=== PATIENT | female | born 1955 | race Caucasian/White ===

== ENCOUNTER 2017-10-15 09:19 | Emergency (ER) | payer MEDICARE, OTHER ==
[2017-10-15 09:23] VITALS: BP 150/73; PULSE 83; TEMP 98.6; BMI 30.2
--- NOTE | 2017-10-15 09:39 | PDOC ---
History of Present Illness - General Chief Complaint: Respiratory Stated Complaint: FLU LIKE SYMPTOMS Time Seen by Provider: 10/15/17 09:28 History Source: Patient Exam Limitations: No Limitations - History of Present Illness Initial Comments: 10/15/17 10:11 Patient here with multiple complaints including cough, body aches, headache, mild anorexia and dysuria. States upper respiratory illness started approximately one week ago has been using Tylenol for body aches and fever. Has not seen her private physician. Timing/Duration: reports: changing over time, getting worse Severity: reports: mild, moderate Modifying Factors: improves with: coughing Associated Symptoms: reports: cough, fever/chills, headache, nasal congestion, nasal drainage, sore throat. denies: wheezing Past History - Travel Traveled outside of the country in the last 30 days: No Close contact w/someone who was outside of country & ill: No - Past Medical History Allergies/Adverse Reactions: Allergies Allergy/AdvReac Type Severity Reaction Status Date / Time No Known Allergies Allergy Verified 10/15/17 09:24 Home Medications: Ambulatory Orders Albuterol Sulfate Inhaler - [Ventolin HFA Inhaler -] 1 - 2 inh PO Q4H #1 inhaler 10/15/17 Azithromycin [Zithromax -] 250 mg PO UTDICT #6 tab 10/15/17 COPD: No Diabetes: Yes HTN: Yes - Suicide/Smoking/Psychosocial Hx Smoking History: Never smoked Review of Systems - Review of Systems Able to Perform ROS?: Yes Is the patient limited Monegasque proficient: Yes Constitutional: Yes: Symptoms Reported, See HPI, Chills, Loss of Appetite, Malaise HEENTM: Yes: Symptoms Reported, See HPI, Nose Congestion, Throat Pain Respiratory: Yes: Symptoms reported, See HPI, Cough ABD/GI: Yes: Symptoms Reported, See HPI, Nausea Neurological: Yes: Symptoms reported, See HPI, Headache All Other Systems: Reviewed and Negative *Physical Exam - Vital Signs Last Vital Signs Temp Pulse Resp BP Pulse Ox 98.6 F 83 18 150/73 99 10/15/17 09:20 10/15/17 09:20 10/15/17 09:20 10/15/17 09:20 10/15/17 09:20 - Physical Exam General Appearance: Yes: Nourished, Appropriately Dressed, Apparent Distress, Mild Distress, Moderate Distress HEENT: positive: PRANAV, Normal ENT Inspection, TMs Normal, Rhinorrhea. negative : Tonsillar Exudate Neck: positive: Supple, Lymphadenopathy (R), Lymphadenopathy (L). negative: Tender Respiratory/Chest: positive: Lungs Clear, Decreased Breath Sounds, Crackles, Rhonchi, Wheezing. negative: Normal Breath Sounds Gastrointestinal/Abdominal: positive: Normal Bowel Sounds, Tender, Soft Extremity: positive: Normal Capillary Refill Integumentary: positive: Dry, Warm, Pale Neurologic: positive: puppy trainer II-XII NML intact, Fully Oriented, Alert, Normal Mood/ Affect, Normal Response, Motor Strength 5/5 Progress Note - Progress Note Progress Note: Much improved after DuoNeb. Urinalysis negative for any pathology. We will treat with Zithromax to cover bronchitis continue albuterol nebulizers *DC/Admit/Observation/Transfer Diagnosis at time of Disposition: Bronchitis - Discharge Dispostion Disposition: HOME Condition at time of disposition: Stable Admit: No - Prescriptions Prescriptions: Albuterol Sulfate Inhaler - [Ventolin HFA Inhaler -] 1 - 2 inh PO Q4H #1 inhaler Azithromycin [Zithromax -] 250 mg PO UTDICT #6 tab - Referrals - Patient Instructions Printed Discharge Instructions: DI for Acute Bronchitis Additional Instructions: Rest, drink lots of fluids: Teas, water, soups, Pedialyte Saltwater gargles Steamy showers/seem to face break up mucus Avoid contact with others until fevers and cough resolved Lots of handwashing and good hygiene Continue [id number] medications for symptomatic relief Tylenol or Motrin for fever and pain Albuterol inhaler 2 puffs 4 times a day for 2 days then as needed for continued cough Azithromycin as directed Followup with private physician in one to 2 days Return to emergency department / pediatric hospital for worsened symptoms, fevers, dehydration - Post Discharge Activity Forms/Work/School Notes: Back to Work
[2017-10-15] MEDS ORDERED: ALBUTEROL SO4 2.5/IPRATROPIUM 0.5 INH SOL 3 ML VIAL.NEB. NEB ONE ×2 (09:47→09:50)
[2017-10-15] MEDS ORDERED: ACETAMINOPHEN 500 MG TABLET (FP) PO ONE (09:48)
[2017-10-15] MEDS ORDERED: ACETAMINOPHEN 500 MG TABLET (FP) ONE (09:50)
[2017-10-15 10:41] LABS: URINE APPEARANCE CLEAR; URINE BILIRUBIN NEGATIVE (NEGATIVE); URINE BLOOD NEGATIVE (NEGATIVE); URINE COLOR YELLOW; URINE GLUCOSE (UA) NEGATIVE (NEGATIVE); URINE KETONE NEGATIVE (NEGATIVE); URINE LEUK ESTERASE NEGATIVE (NEGATIVE); URINE NITRITE NEGATIVE (NEGATIVE); URINE PROTEIN NEGATIVE (NEGATIVE)
== END 2017-10-15 11:15 | disposition home or self-care (01) ==
LOC: JERFT 09:19
PROC: 3E0F7GC Introduction of Other Therapeutic Substance into Respiratory Tract, Via Natural or Artificial Opening (ICD-10-PCS; principal; 2017-10-15)
DX: J40 Bronchitis, not specified as acute or chronic (principal)
CPT/HCPCS: 81003; 87086; 94640; 99281-25

== ENCOUNTER 2017-10-18 14:54 | Emergency (ER) | payer OTHER ==
--- NOTE | 2017-10-18 15:16 | PDOC ---
Rapid Medical Evaluation Time Seen by Provider: 10/18/17 15:13 Medical Evaluation: Allergies Allergy/AdvReac Type Severity Reaction Status Date / Time No Known Allergies Allergy Verified 10/15/17 09:24 10/18/17 15:14 The patient presents with a chief complaint of: Dizziness, lightheadedness, decreased appetite, feeling weak for two weeks. Believes she is dehydrated. Admits to headache as well. States she had a fever yesterday. Vomited twice on tuesday with nothing since I have performed a brief in-person evaluation of this patient; Pertinent physical exam findings: Afebrile, Gait intact, CTAB, RRR I have ordered the following: CBC, CMP, UA The patient will proceed to the ED for further evaluation.
[2017-10-18 15:17] VITALS: BP 128/62; PULSE 78; TEMP 99.4; BMI 27.4
[2017-10-18 16:34] LABS: ALBUMIN 3.8 g/dl (3.4-5.0); ANION GAP 7 (8-16); BLOOD UREA NITROGEN 9 mg/dL (7-18); CALCIUM 8.1 mg/dL (8.5-10.1); CHLORIDE 102 mmol/L (98-107); CO2 28 mmol/L (21-32); CREATININE 0.7 mg/dL (0.55-1.02); GLUCOSE,RANDOM 103 mg/dL (74-106); POTASSIUM 3.9 mmol/L (3.5-5.1); SGOT/AST 17 U/L (15-37); SGPT/ALT 27 U/L (12-78); SODIUM 137 mmol/L (136-145)
[2017-10-18 16:35] LABS: ALK PHOS 98 U/L (45-117); BASO % 0.1 % (0-2.0); EOS % 0.1 % (0-4.5); HEMATOCRIT 41.1 % (32.4-45.2); HEMOGLOBIN 13.7 GM/dL (10.7-15.3); LYMPH % 16.2 % (8-40); MCH 29.7 pg (25.7-33.7); MCHC 33.4 g/dl (32.0-36.0); MEAN PLT VOLUME 9.2 fl (7.5-11.1); MONO % 7.2 % (3.8-10.2); NEUT % 76.4 % (42.8-82.8); PLATELET COUNT 165 K/MM3 (134-434); RBC 4.62 M/mm3 (3.60-5.2); RDW 13.9 % (11.6-15.6); TOT PROT 7.1 g/dl (6.4-8.2); WHITE BLOOD COUNT 9.6 K/mm3 (4.0-10.0)
--- NOTE | 2017-10-18 19:21 | PDOC ---
History of Present Illness - General Chief Complaint: Weakness Stated Complaint: LOSS OF APPETITE Time Seen by Provider: 10/18/17 15:13 - History of Present Illness Initial Comments: 10/18/17 20:11 Patient [facility]. Past History - Past Medical History Allergies/Adverse Reactions: Allergies Allergy/AdvReac Type Severity Reaction Status Date / Time No Known Allergies Allergy Verified 10/18/17 15:17 Home Medications: Ambulatory Orders Albuterol Sulfate Inhaler - [Ventolin HFA Inhaler -] 1 - 2 inh PO Q4H #1 inhaler 10/15/17 Azithromycin [Zithromax -] 250 mg PO UTDICT #6 tab 10/15/17 COPD: No Diabetes: Yes HTN: Yes - Surgical History Abdominal Surgery: Yes (bladder lift) - Suicide/Smoking/Psychosocial Hx Smoking History: Never smoked Information on smoking cessation initiated: No Hx Alcohol Use: No Drug/Substance Use Hx: No Review of Systems - Review of Systems Comments:: 10/18/17 20:11 See above *Physical Exam - Vital Signs Last Vital Signs Temp Pulse Resp BP Pulse Ox 99.4 F 78 19 128/62 95 10/18/17 15:14 10/18/17 15:14 10/18/17 15:14 10/18/17 15:14 10/18/17 15:14 - Physical Exam Comments: 10/18/17 20:11 See above ED Treatment Course - LABORATORY CBC & Chemistry Diagram: 10/18/17 15:41 10/18/17 15:41 - ADDITIONAL ORDERS Additional order review: Laboratory Results 10/18/17 15:41 Sodium 137 Potassium 3.9 Chloride 102 Carbon Dioxide 28 Anion Gap 7 L BUN 9 Creatinine 0.7 Creat Clearance w eGFR > 60 Random Glucose 103 Calcium 8.1 L Total Bilirubin 1.0 AST 17 ALT 27 Alkaline Phosphatase 98 Total Protein 7.1 Albumin 3.8 10/18/17 15:41 RBC 4.62 MCV 89.0 MCHC 33.4 RDW 13.9 MPV 9.2 Neutrophils % 76.4 Lymphocytes % 16.2 Monocytes % 7.2 Eosinophils % 0.1 Basophils % 0.1 Medical Decision Making - Medical Decision Making 10/18/17 20:11 See above *DC/Admit/Observation/Transfer Diagnosis at time of Disposition: Patient left before evaluation by physician - Discharge Dispostion Disposition: LEFT BEFORE MED EVSHYANNE LUCIA RM - Referrals - Patient Instructions - Post Discharge Activity
[2017-10-18 19:51] LABS: URINE APPEARANCE CLEAR; URINE BILIRUBIN NEGATIVE (NEGATIVE); URINE BLOOD NEGATIVE (NEGATIVE); URINE COLOR AMBER; URINE GLUCOSE (UA) NEGATIVE (NEGATIVE); URINE KETONE NEGATIVE (NEGATIVE); URINE NITRITE NEGATIVE (NEGATIVE); URINE PROTEIN NEGATIVE (NEGATIVE)
[2017-10-18 19:55] LABS: URINE LEUK ESTERASE 1+ (NEGATIVE)
[2017-10-18 19:57] LABS: EPI CELLS RARE /HPF (FEW); URINE BACTERIA RARE /hpf (NONE SEEN); URINE MUCUS RARE
== END 2017-10-18 20:10 | disposition left against medical advice (07) ==
LOC: JER 14:54
DX: Z53.21 Procedure and treatment not carried out due to patient leaving prior to being seen by health care provider (principal)
CPT/HCPCS: 36415; 80053; 81003; 81015; 85025; 99282-25

== ENCOUNTER 2024-12-23 10:44 | Emergency (ER) | payer MEDICARE, OTHER ==
[2024-12-23 10:51] VITALS: BMI 25.4
[2024-12-23] MEDS ORDERED: LIDOCAINE 5% TOPICAL PATCH ONE (12:51)
[2024-12-23] MEDS ORDERED: ACETAMINOPHEN INJECTION 100 ML ONE (12:51)
[2024-12-23 12:59] LABS: BASO % 0.4 % (0-2.0); EOS % 0.6 % (0-4.5); HEMOGLOBIN 13.1 GM/dL (10.7-15.3); LYMPH % 15.7 % (8-40); MCH 29.8 pg (25.7-33.7); MCHC 33.5 g/dl (32.0-36.0); MEAN CELL VOLUME 88.8 fl (80-96); MEAN PLT VOLUME 8.7 fl (7.5-11.1); MONO % 6.9 % (3.8-10.2); NEUT % 76.4 % (42.8-82.8); RDW 14.9 % (11.6-15.6)
[2024-12-23 13:01] LABS: EPI CELLS 7 /uL (0-25.1); HYALINE CASTS 0 /uL (0-3.1); PH,URINE 5.5 (5.0-8.0); URINE APPEARANCE CLEAR; URINE BACTERIA 19 /uL (0-1359); URINE BILIRUBIN NEGATIVE (NEGATIVE); URINE COLOR YELLOW; URINE GLUCOSE (UA) NEGATIVE (NEGATIVE); URINE KETONE NEGATIVE (NEGATIVE); URINE LEUK ESTERASE TRACE (NEGATIVE); URINE NITRITE NEGATIVE (NEGATIVE); URINE PROTEIN NEGATIVE (NEGATIVE); URINE RBC 13 /uL (0-23.9); URINE UROBILINOGEN 0.2 mg/dL (0.2-1.0); URINE WBC 12 /uL (0-25.8)
[2024-12-23 13:23] LABS: POTASSIUM 3.7 mmol/L (3.5-5.1)
[2024-12-23 13:25] LABS: BLOOD UREA NITROGEN 20.1 mg/dL (7-18); CALCIUM 9.5 mg/dL (8.5-10.1)
[2024-12-23] MEDS: ACETAMINOPHEN 1000 MG/100 ML BAG IVPB ONE (13:25)
[2024-12-23] MEDS: LIDOCAINE 5% TOPICAL PATCH TP ONE (13:26)
[2024-12-23 13:28] LABS: CREATININE 0.8 mg/dL (0.55-1.3)
[2024-12-23 13:30] LABS: BILIRUBIN,TOTAL 0.8 mg/dL (0.2-1); TOT PROT 7.3 g/dl (6.4-8.2)
[2024-12-23 13:35] LABS: PLATELET COUNT 219 10^3/uL (134-434)
[2024-12-23] MEDS ORDERED: KETOROLAC TROMETHAMINE 15 MG/ML VIAL ONE (15:33)
[2024-12-23] MEDS: KETOROLAC TROMETHAMINE 15 MG/ML VIAL IVPUSH ONE (15:47)
[2024-12-23 18:32] VITALS: BP 133/78; PULSE 78; RESP 19; TEMP 97.9
[2024-12-23] MEDS ORDERED: LIDOCAINE PATCH REMOVAL MC ONE (22:00)
== END 2024-12-23 18:31 | disposition left against medical advice (07) ==
LOC: JER 10:44
PROC: 3E033NZ Introduction of Analgesics, Hypnotics, Sedatives into Peripheral Vein, Percutaneous Approach (ICD-10-PCS; principal; 2024-12-23)
PROC: 3E0333Z Introduction of Anti-inflammatory into Peripheral Vein, Percutaneous Approach (ICD-10-PCS; 2024-12-23)
DX: M54.50 Low back pain, unspecified (principal)
CPT/HCPCS: 36415; 72131-TC; 72192-TC; 80053; 81003; 85025; 87086; 96374; 96375; 99285-25; J0131